=== PATIENT | female | born 1975 | race Caucasian/White ===

== ENCOUNTER 2017-05-06 17:54 | Emergency (ER) | payer OTHER ==
--- NOTE | 2017-05-06 18:48 | UC ---
[facility] HPI - HPI Summary HPI Summary: worsening right ear and dental pain pain in righ maxillary sinus, congestion feeling fatigued - History of Current Complaint Chief Complaint: UCRespiratory Stated Complaint: TOOTH/EAR ACHE Time Seen by Provider: 05/06/17 18:47 Hx Obtained From: Patient Hx Last Menstrual Period: 05/11/15 ?: No Onset/Duration: Gradual Onset, Lasting Days Severity: Moderate Pain Intensity: 7 Pain Scale Used: 0-10 Numeric Aggravating: Nothing Alleviating: Nothing - Allergies/Home Medications Allergies/Adverse Reactions: Allergies Allergy/AdvReac Type Severity Reaction Status Date / Time No Known Allergies Allergy Verified 06/04/15 16:09 PMH/Surg Hx/FS Hx/Imm Hx Previously Healthy: Yes - Surgical History Surgical History: Yes Surgery Procedure, Year, and Place: c section x 2 [facility], gallbladder at [facility] - Family History Known Family History: Positive: Unknown - Social History Occupation: Employed Full-time Lives: With Family Alcohol Use: Occasionally Substance Use Type: None Smoking Status (MU): Light Every Day Tobacco Smoker Review of Systems Constitutional: Negative Skin: Negative Eyes: Negative ENT: Negative, Dental Pain - right upper and lower jaw and teeth, Ear Ache - right, Sinus Pain/Tenderness - right Respiratory: Negative Cardiovascular: Negative Gastrointestinal: Negative Genitourinary: Negative Motor: Negative Neurovascular: Negative Musculoskeletal: Negative Neurological: Negative Psychological: Negative Is Patient Immunocompromised?: No All Other Systems Reviewed And Are Negative: Yes Physical Exam Triage Information Reviewed: Yes Appearance: Well-Appearing, Well-Nourished, Pain Distress - mild Vital Signs Reviewed: Yes Eye Exam: Normal Eyes: Positive: Conjunctiva Clear ENT Exam: Normal ENT: Positive: Normal ENT inspection, Hearing grossly normal, Pharynx normal, TMs normal. Negative: Nasal congestion, Nasal drainage, Tonsillar swelling, Tonsillar exudate, Trismus, Muffled/hoarse voice Dental Exam: Normal Dental: Positive: Percussion Tenderness @ - all upper and lower teeth on right side Neck exam: Normal Neck: Positive: Supple, Nontender, No Lymphadenopathy Respiratory Exam: Normal Respiratory: Positive: Chest non-tender, Lungs clear, Normal breath sounds, No respiratory distress, No accessory muscle use Cardiovascular Exam: Normal Cardiovascular: Positive: RRR, No Murmur, Pulses Normal, Brisk Capillary Refill Musculoskeletal Exam: Normal Musculoskeletal: Positive: Strength Intact, ROM Intact, No Edema Neurological Exam: Normal Neurological: Positive: Alert, Muscle Tone Normal Psychological Exam: Normal Skin Exam: Normal Dental Complaint Course/Dx - Course Course Of Treatment: flonase, amoxicillin, sudafed, ibuprofen increase fluids follow with pcp - Differential Dx/Diagnosis Differential Diagnosis/Dx: Dental Caries, Mandibular Trauma, Maxillary Trauma, Odontogenic Pain, Other - Sinuisitis Provider Diagnoses: Acute right maxillary sinusitis Discharge - Discharge Plan Condition: Stable Disposition: HOME Prescriptions: Amoxicillin PO (*) [Amoxicillin 875 MG (*)] 875 mg PO BID #20 tab Fluticasone NASAL SPRAY 50MCG* [Flonase NASAL SPRAY 50MCG*] 2 spray BOTH NARES DAILY #1 btl Ibuprofen TAB* [Motrin TAB* 600 MG] 600 mg PO Q6H PRN #36 tab PRN Reason: pain Patient Education Materials: Pseudoephedrine (By mouth), Serous Otitis Media ( ED), How to Use Nasal Paicines (ED) Referrals: Preethi De La Garza TITLE CAMERA OPERATOR [Primary Care Provider] - If Needed
[2017-05-06 18:50] VITALS: BP 131/72
[2017-05-06] MEDS ORDERED: Ibuprofen TAB* 600 MG PO ONE (19:05)
== END 2017-05-06 19:25 | disposition home or self-care (01) ==
LOC: UCCORT 17:54
DX: J01.00 Acute maxillary sinusitis, unspecified (principal)
CPT/HCPCS: 99212; A9270-GY; G0463